=== PATIENT | female | born 1980 | race Caucasian/White ===

== ENCOUNTER → 2019-05-21 11:13 | Outpatient (BNVA) | payer BC, SELFPAY | PROVIDERS: Family Provider Family Medicine; Visit Provider Family Medicine | DX: N30.01 Acute cystitis with hematuria (principal); R35.0 Frequency of micturition | CPT/HCPCS: 81003 ==

== ENCOUNTER 2023-08-16 15:56 | Outpatient (CLI) | payer BC, SELFPAY ==
[2023-08-16 21:06] LABS: Free T4 Free Thyroxine 1.46 ng/dL (0.82-1.77); Thyroid Stimulating Hormone 1.14 uIU/mL (0.27-4.20)
[2023-08-19 08:11] LABS: T3 Total 109 ng/dL (76-181)
[2023-08-21 15:40] LABS: Thyroglobulin AB 4 IU/mL (< or = 1); Thyroid Peroxidase Antobodies 36 IU/mL (<9)
[2023-09-02 01:00] LABS: TSH Receptor Binding Antibody 1.04 IU/L (< OR = 2.00)
== END 2023-08-16 15:57 | disposition home or self-care (01) ==
LOC: LAB 15:57
PROVIDERS: PCP Physical Medicine & Rehabilitation; Visit Provider Internal Medicine
DX: E05.90 Thyrotoxicosis, unspecified without thyrotoxic crisis or storm (principal)
CPT/HCPCS: 36415; 83516; 84439; 84443; 84480; 86376; 86800

== ENCOUNTER 2023-10-06 12:58 | Outpatient (CLI) | payer BC, SELFPAY ==
--- NOTE | 2023-10-06 13:09 | USR_ITS ---
PROCEDURE INFORMATION: Exam: US Soft Tissue Head and Neck, Thyroid Exam date and time: 10/06/2023 1:36 PM Age: 43 years old Clinical indication: Condition or disease; Thyroid disorder; Other: Hyperthyroidism TECHNIQUE: Imaging protocol: Real-time ultrasound scan of the neck with image documentation. Exam focused on the thyroid. COMPARISON: No relevant prior studies available. FINDINGS: The right lobe measures 5.3 x 1.8 x 1.9 cm. The left lobe measures 4.8 x 1.6 x 1.7 cm. Isthmus measures 2 mm in thickness. There is homogeneous architecture in the thyroid tissue. No nodules are identified. A sub cm cyst is seen in the lower pole of the right lobe. Small normal appearing lymph nodes are seen in the neck. US/US thyroid [id number] IMPRESSION: No significant findings.
== END 2023-10-06 12:59 | disposition home or self-care (01) ==
LOC: RAD 12:59
PROVIDERS: PCP Internal Medicine; Visit Provider Internal Medicine
DX: E03.9 Hypothyroidism, unspecified (principal); E04.1 Nontoxic single thyroid nodule
CPT/HCPCS: 76536

== ENCOUNTER 2023-10-18 10:00 | Outpatient (CLI) | payer BC, SELFPAY ==
--- NOTE | 2023-10-18 09:36 | MM_ITS ---
WS: [id number] SCREENING DIGITAL TOMOSYNTHESIS MAMMOGRAM WITH CAD HISTORY: SCREENING COMPARISON: None available. Bilateral CC and MLO with tomosynthesis views submitted. Synthetic mammography reviewed. Computer aid ed detection analyzed. Breast composition: The breasts are heterogeneously dense, which may obscure small masses. No suspici ous masses, microcalcifications or architectural distortion. MM/[place] [id number] IMPRESSION: BI-RADS: 1-Negative FOLLOW UP: 1 Year Follow-up
== END 2023-10-18 10:01 | disposition home or self-care (01) ==
PROVIDERS: PCP Internal Medicine; Visit Provider Internal Medicine
DX: Z12.31 Encounter for screening mammogram for malignant neoplasm of breast (principal); R92.333 Mammographic heterogeneous density, bilateral breasts
CPT/HCPCS: 77063; 77067

== ENCOUNTER 2024-10-30 11:55 | Outpatient (CLI) | payer BC, SELFPAY ==
--- NOTE | 2024-10-30 12:02 | MM_ITS ---
WS: [id number] BILATERAL 3D TOMOSYNTHESIS DIGITAL SCREENING MAMMOGRAM WITH CAD CLINICAL INFORMATION: SCREENING HISTORY: Screening mammogram. No current complaints. COMPARISON: 2023 TECHNIQUE: Bilateral CC and MLO. FINDINGS: The breast are composed of extremely dense tissue, which can limit the detection of small underlying mass lesions. No suspicious focal mass, asymmetry, calcifications, or architectural distortion. No evidence of malignancy. MM/MM scr tomosynthesis [id number] IMPRESSION: DENSITY: The breasts are extremely dense, which lowers the sensitivity of mammo graphy. BI-RADS: 1 - Negative FOLLOW UP: 1 Year Follow-up Recommend return to annual screening mammography.
== END 2024-10-30 11:56 | disposition home or self-care (01) ==
PROVIDERS: PCP Internal Medicine; Visit Provider Internal Medicine
DX: Z12.31 Encounter for screening mammogram for malignant neoplasm of breast (principal); R92.313 Mammographic fatty tissue density, bilateral breasts
CPT/HCPCS: 77063; 77067